=== PATIENT | male | born 1945 | race Caucasian/White ===

== ENCOUNTER → 2018-12-04 | Outpatient (CLI) | payer MEDICARE, OTHER ==
--- NOTE | 2018-12-04 11:49 | PCVCIMAG ---
APPROVED REPORT Study performed: 12/04/2018 10:35:10 EXAM: Comprehensive 2D, Doppler, and color-flow Echocardiogram Patient Location: Echo lab Status: routine BSA: 2.53 HR: 86 bpmBP: 148/70 mmHg Rhythm: NSR Other Information Study Quality: Adequate Technically limited study due to inability to position patient. Risk Factors: Cardiac Risk Factors: HTN Indications Congestive Heart Failure CAD Cardiomyopathy 2D Dimensions IVSd: 16.29 (7-11mm) LVDd: 45.94 mm PWd: 16.27 (7-11mm)Ascending Ao: 43.33 (22-36mm) LVDs: 31.58 (25-40mm) Left Atrium: 51.64 (27-40mm) Aortic Root: 38.12 mm LV Single Plane 4CH: 33.89 % LV Single Plane 2CH: 34.12 % Biplane EF: 34.4 % Volumes Left Atrial Volume (Systole) Single Plane 4CH: 119.94 mLSingle Plane 2CH: 119.70 mL LA ESV Index: 49.00 mL/m2 Aortic Valve AoV Peak Nirav.: 1.76 m/s AO Peak Gr.: 12.34 mmHgLVOT Max P.46 mmHg LVOT Max V: 1.06 m/s Mitral Valve E/A Ratio: 0.8 MV Decel. Time: 273.52 ms MV E Max Nirav.: 0.83 m/s MV A Nirav.: 1.04 m/s IVRT: 103.81 ms Pulmonary Valve PV Peak Nirav.: 1.09 m/sPV Peak Gr.: 4.77 mmHg Pulmonary Vein P Vein S: 0.34 m/sP Vein A: 0.28 m/s P Vein D: 0.46 m/sP Vein A Dur.: 117.6 msec P Vein S/D Ratio: 0.74 Tricuspid Valve TR Peak Nirav.: 2.87 m/s TR Peak Gr.: 33.03 mmHg TV Vmax: 0.63 m/s Left Ventricle The left ventricle is normal size. There is normal LV segmental wall motion. Moderate concentric left ventricular hypertrophy. Left ventricular systolic function is moderate to severely decreased. LVEF is 34%. Grade I - abnormal relaxation pattern. Right Ventricle The right ventricle is normal size. The right ventricular systolic function is normal. Atria Left atrium is severely dilated. The right atrium size is normal. Aortic Valve The aortic valve is normal in structure. No aortic regurgitation is present. There is no aortic valvular stenosis. Mitral Valve The mitral valve is normal in structure. There is no mitral valve regurgitation noted. No evidence of mitral valve stenosis. Tricuspid Valve The tricuspid valve is normal in structure. Mild tricuspid regurgitation with PAP of 43 mmHg. Pulmonic Valve The pulmonary valve is normal in structure. Trace pulmonic regurgitation. Great Vessels Aortic root is borderline dilated to 3.8 cm. 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 IVC is not well visualized. Pericardium There is no pericardial effusion. There is no pleural effusion. <Conclusion> The left ventricle is normal size. LVEF is 34%. Left atrium is severely dilated. The aortic valve is normal in structure. The mitral valve is normal in structure. The tricuspid valve is normal in structure. Mild tricuspid regurgitation with PAP of 43 mmHg. The pulmonary valve is normal in structure. Trace pulmonic regurgitation. There is no pericardial effusion.
== END | disposition home or self-care (01) ==
LOC: PCVCIMAG 10:30
PROVIDERS: ATTEND Internal Medicine
DX: I07.1 Rheumatic tricuspid insufficiency (principal); I11.0 Hypertensive heart disease with heart failure; I50.20 Unspecified systolic (congestive) heart failure; F32.0 Major depressive disorder, single episode, mild; I89.0 Lymphedema, not elsewhere classified; Z88.8 Allergy status to other drugs, medicaments and biological substances; Z87.891 Personal history of nicotine dependence; Z79.82 Long term (current) use of aspirin
CPT/HCPCS: 36415; 80061; 93306; G0463

== ENCOUNTER → 2019-01-15 | Outpatient (CLI) | payer MEDICARE, OTHER | END | disposition home or self-care (01) | LOC: PCVCCLINIC 16:13 | PROVIDERS: ATTEND Internal Medicine | DX: I11.0 Hypertensive heart disease with heart failure (principal); I50.20 Unspecified systolic (congestive) heart failure; I25.5 Ischemic cardiomyopathy; I89.0 Lymphedema, not elsewhere classified; I25.10 Atherosclerotic heart disease of native coronary artery without angina pectoris; E78.5 Hyperlipidemia, unspecified; Z88.1 Allergy status to other antibiotic agents; Z88.2 Allergy status to sulfonamides; Z88.8 Allergy status to other drugs, medicaments and biological substances; Z79.82 Long term (current) use of aspirin; Z79.899 Other long term (current) drug therapy; Z90.49 Acquired absence of other specified parts of digestive tract; Z87.891 Personal history of nicotine dependence; Z72.89 Other problems related to lifestyle | CPT/HCPCS: G0463 ==